=== PATIENT | female | born 1995 | race Caucasian/White ===

== ENCOUNTER 2017-10-26 12:03 | Emergency (ER) | END 2017-10-26 15:47 | disposition home or self-care (01) ==

== ENCOUNTER 2018-01-17 17:53 | Emergency (ER) | END 2018-01-17 22:28 | disposition home or self-care (01) ==

== ENCOUNTER 2018-06-27 16:33 | Emergency (ER) | END 2018-06-27 20:16 | disposition home or self-care (01) ==

== ENCOUNTER 2018-07-15 10:53 | Emergency (ER) | END 2018-07-15 13:27 | disposition left against medical advice (07) ==

== ENCOUNTER 2018-10-02 15:14 | Emergency (ER) | END 2018-10-02 16:15 | disposition home or self-care (01) ==

== ENCOUNTER 2019-01-15 17:29 | Emergency (ER) | payer OTHER ==
[~2019-01-15] VITALS: Ht 160 cm; Wt 103.5 kg
[~2019-01-15 17:29] MED LIST: ACET325T33 PO; ACET325T45 PO; AMOX1TAB10 PO; CEPH-443 PO; DIC20 PO; DICY20TA59 PO; HYDR-3498 PO; HYDR-3980 PO; HYDR-4011 PO; IBUP-1542 PO; LORA-441 PO; NAPR-985 PO; NITR-58 PO; OMEP40CA6 PO; ONDA4TAB14 PO; RANI150T35 PO
[2019-01-15 18:13] VITALS: Ht 160 cm; Wt 103.5 kg
[2019-01-15] MEDS ORDERED: ONDANSETRON (ODT) 4 MG TAB ODT STA (20:49)
[2019-01-15] MEDS ORDERED: IBUPROFEN 800 MG TAB PO ONE (21:00)
[2019-01-16] MEDS ORDERED: NITR-58 PO (00:17)
[2019-01-16] MEDS ORDERED: ACET-141 PO (00:17)
--- NOTE | 2019-01-16 00:20 | ERD ---
ER Documentation Chief Complaint Chief Complaint AP RADIATING TO BACK WITH VOMITING X 1 DAY, DYSURIA HPI 23-year-old female presents for pain in the lower left quadrant with left flank pain and vomiting times 1 day. She does have dysuria. She also vomited a few times. She states that the pain is 6 out of 10, pulsatile in nature. Denies diarrhea. Denies significant past medical history. ROS All systems reviewed and are negative except as per history of present illness. Medications Home Meds Active Scripts Nitrofurantoin Monohyd Macrocr* (Macrobid*) 100 Mg Capsr, 100 MG PO BID for uti for 5 Days, #10 CAP Prov:SUSAN SUN DO 01/16/19 Acetaminophen* (Acetaminophen*) 500 MG Extra Strength Tablet, 500 MG PO Q4H PRN for PAIN AND OR ELEVATED TEMP for 30 Days, TAB Prov:SUSAN SUN DO 01/16/19 Amoxicillin/Potassium Clav (Amox-Clav 875-125 mg Tablet) 875-125 mg Tab, 1 TAB PO BID for 10 Days, #20 TAB Prov:JEANNIE ESPINOZA 10/02/18 Acetaminophen* (Tylenol*) 325 Mg Tablet, 2 TAB PO Q6 PRN for PAIN AND OR ELEVATED TEMP, #20 TAB Prov:ANA LAURA BENJAMIN MD 06/27/18 Ranitidine Hcl* (Zantac*) 150 Mg Tablet, 150 MG PO BID PRN for EPIGASTRIC PAIN, #30 TAB Prov:ANA LAURA BENJAMIN MD 06/27/18 Omeprazole* (Omeprazole*) 40 Mg Capsule.dr, 40 MG PO DAILY, #14 CAP Prov:ORALIA SANTOS DO 01/17/18 Dicyclomine HCl (Dicyclomine HCl) 20 Mg Tablet, 20 MG PO QID, #20 Prov:ORALIA SANTOS DO 01/17/18 Hydrocodone/Acetaminophen ([place] 10-325 Tablet) 1 Each Tablet, 1 TAB PO Q6H PRN for PAIN, #20 TAB Prov:ORALIA SANTOS DO 01/17/18 Cephalexin* (Keflex*) 500 Mg Capsule, 500 MG PO QID for 5 Days, CAP Prov:SUSAN RANDALL PA-C 10/26/17 Ondansetron (Ondansetron Odt) 4 Mg Tab.rapdis, 4 MG PO Q8 PRN for NAUSEA AND/OR VOMITING, #30 TAB Prov:KELLY GOEL NP 06/07/16 Dicyclomine Hcl* (Bentyl*) 20 Mg Tablet, 20 MG PO QID, #20 TAB Prov:KELLY GOEL NP 06/07/16 Hydrocodone/Acetaminophen ([place] 5-325 Tablet) 1 Each Tablet, 1 TAB PO Q6H PRN for PAIN, #20 TAB Prov:KELLY GOEL NP 06/07/16 Lorazepam* (Ativan*) 0.5 Mg Tablet, 0.5 MG PO Q8, #10 TAB Prov:MOJGAN JAFFE MD 12/16/15 Ibuprofen* (Motrin*) 600 Mg Tab, 600 MG PO BID, #30 TAB 0 Refills Prov:BOLIVAR HUGHES PA-C 10/10/15 Nitrofurantoin Monohyd Macrocr* (Macrobid*) 100 Mg Capsr, 100 MG PO BID, #14 CAP 0 Refills Prov:BOLIVAR HUGHES PA-C 10/10/15 Naproxen* (Naprosyn*) 500 Mg Tablet, 500 MG PO BID PRN for PAIN AND/OR INFLAMMATION, #30 TAB Prov:GARRETT YING PA-C 09/21/15 Hydrocodone Bit-Acetaminophen* ([place]*) 5-325 Mg Tab, 1 TAB PO Q6 PRN for PAIN, #10 TAB Prov:GARRETT YING PA-C 09/21/15 Reported Medications Acetaminophen* (Acetaminophen*) 325 Mg Tablet, 650 MG PO Q4 TOOK IT THIS MORNING AT 0800 06/24/13 Allergies Allergies: Coded Allergies: No Known Allergy (Unverified , 10/02/18) PMhx/Soc History of Surgery: No Anesthesia Reaction: No Hx Neurological Disorder: No Hx Respiratory Disorders: No Hx Cardiac Disorders: No Hx Psychiatric Problems: No Hx Miscellaneous Medical Probl: Yes (OTITIS MEDIA/RIGHT EAR) Hx Alcohol Use: No Hx Substance Use: No Hx Tobacco Use: No Smoking Status: Never smoker Physical Exam Vitals Vital Signs Date Temp Pulse Resp B/P (MAP) Pulse Ox O2 O2 Flow FiO2 Time Delivery Rate 01/16/19 98.5 85 16 124/76 98 Room Air 00:39 (92) 01/15/19 99.4 81 16 131/60 99 18:13 (83) Physical Exam Const: No acute distress Resp: Clear to auscultation bilaterally Cardio: Regular rate and rhythm, no murmurs Abd: Soft, non distended. Normal bowel sounds, mild left lower quadrant/left pelvic area tenderness palpation, no McBurney's point tenderness, no Gould sign, no rebound or guarding noted Skin: No petechiae or rashes Back: No midline or flank tenderness Ext: No cyanosis, or edema Neur: Awake and alert Psych: Normal Mood and Affect Result Diagram: 01/15/19205701/15/192057 Results 24 hrs Laboratory Tests Test 01/15/19 20:58 01/15/19 21:14 01/15/19 22:34 White Blood Count 8.8 10^3/ul Red Blood Count 4.49 10^6/ul Hemoglobin 12.5 g/dl Hematocrit 39.0 % Mean Corpuscular Volume 86.9 fl Mean Corpuscular Hemoglobin 27.8 pg Mean Corpuscular 32.1 g/dl Hemoglobin Concent Red Cell Distribution Width 13.6 % Platelet Count 350 10^3/UL Mean Platelet Volume 8.4 fl Immature Granulocytes % 0.300 % Neutrophils % 62.4 % Lymphocytes % 29.3 % Monocytes % 6.6 % Eosinophils % 0.9 % Basophils % 0.5 % Nucleated Red Blood Cells % 0.0 /100WBC Immature Granulocytes # 0.030 10^3/ul Neutrophils # 5.5 10^3/ul Lymphocytes # 2.6 10^3/ul Monocytes # 0.6 10^3/ul Eosinophils # 0.1 10^3/ul Basophils # 0.0 10^3/ul Nucleated Red Blood Cells # 0.0 10^3/ul Urine Color YELLOW Urine Clarity CLOUDY Urine pH 6.0 Urine Specific [place] 1.015 Urine Ketones NEGATIVE mg/dL Urine Nitrite NEGATIVE mg/dL Urine Bilirubin NEGATIVE mg/dL Urine Urobilinogen NEGATIVE mg/dL Urine Leukocyte Esterase 2+ Mary/ul Urine Microscopic RBC 5 /HPF Urine Microscopic WBC 30 /HPF Urine Squamous Epithelial Cells MANY /HPF Urine Bacteria FEW /HPF Urine Mucus FEW /HPF Urine Hemoglobin NEGATIVE mg/dL Urine Glucose NEGATIVE mg/dL Urine Total Protein NEGATIVE mg/dl Sodium Level 138 mmol/L Potassium Level 4.4 mmol/L Chloride Level 101 mmol/L Carbon Dioxide Level 26 mmol/L Anion Gap 11 Blood Urea Nitrogen 9 mg/dl Creatinine 0.43 mg/dl Est Glomerular Filtrat > 60 mL/min Rate mL/min Glucose Level 84 mg/dl Calcium Level 9.2 mg/dl Total Bilirubin 0.5 mg/dl Direct Bilirubin 0.00 mg/dl Indirect Bilirubin 0.5 mg/dl Aspartate Amino 22 IU/L Transf (AST/SGOT) Alanine 18 IU/L Aminotransferase (ALT/SGPT) Alkaline Phosphatase 86 IU/L Total Protein 8.0 g/dl Albumin 4.3 g/dl Globulin 3.70 g/dl Albumin/Globulin Ratio 1.16 Lipase 76 U/L POC Beta HCG, Qualitative POSITIVE Beta HCG, Quantitative 51345.0 mIU/ml Current Medications Medications Dose Sig/Marcell Start Time Status Last (Trade) Ordered Route PRN Stop Time Admin Dose Reason Admin Ibuprofen 800 mg ONCE ONCE 01/15/19 DC (Motrin) PO 21:00 01/15/19 21:01 Ondansetron 4 mg ONCE STAT 01/15/19 DC 01/15/19 HCl (Zofran ODT 20:49 01/15/19 21:37 Odt) 20:52 Procedures/MDM Medical Decision Making: Differential diagnosis includes but not limited to acute gastritis, acute gastroenteritis, appendicitis, cholecystitis, pancreatitis. Patient appeared well on physical exam. Nontoxic appearing. There is some tenderness to palpation over the left lower quadrant, left pelvic area ED course: Patient was given . Symptoms improved with treatment. Labs: CBC showed no severe anemia, no elevated WBC to suggest infection CMP showed no electrolyte abnormalities, there was normal kidney and liver function Lipase was normal Urine was negative UA was negative for infection Imaging: Patient likely has Prescription(s): Patient given prescription for supportive medications . Patient advised to follow up with PCP in 1-2 days. Patient advised to return to ED for new or worsening symptoms. Patient stable on discharge from the ED. Disclaimer: Inadvertent spelling and grammatical errors are likely due to EHR/dictation software use and do not reflect on the overall quality of patient care. Also, please note that the electronic time recorded on this note does not necessarily reflect the actual time of the patient encounter. Departure Diagnosis: Primary Impression: Pelvic pain affecting in first trimester, antepartum Condition: Fair Patient Instructions: : Your First Trimester Changes Referrals: [facility] [employer] [employer] ENGINE[facility] [place] [id number] [facility] [address] [place] [address] OFFICE FAX , [facility] [address] [place], [place] [id number], [place] [address] [place] [address] [address] ANDERS, [facility] [address] [facility], [facility] [address] [address], [facility] [address] [place] [address] [facility] [address] [place] [address] [address] [facility] [address] [address]DE[address], [place] [address] [facility], [facility] [address] [address] [place]OP, [place] [address] [facility]. [address], [facility] [address] [address] FERNANDEZ, [facility] [address] [place], [place] [id number] Additional Instructions: Call your primary care doctor TOMORROW for an appointment during the next 1-2 da ys.See the doctor sooner or return here if your condition worsens before your appointment time. Return in ED in 48hr for repeat HCG level make appointment with Pool Table Operator SUSAN SUN DO Jan 16, 2019 00:20
[2019-01-16 00:39] VITALS: BP 124/76; PULSE 85; RESP 16
== END 2019-01-16 00:39 | disposition home or self-care (01) ==
LOC: FTE 17:29
DX: R10.2 Pelvic and perineal pain (principal); Z33.1 Pregnant state, incidental
CPT/HCPCS: 36415; 76775; 76801; 76817; 80053; 81001; 81025; 83690; 84702; 85025; 87086; Z7502; Z7610

== ENCOUNTER 2019-02-25 18:39 | Emergency (ER) | payer OTHER ==
[~2019-02-25] VITALS: Ht 157.5 cm; Wt 103.6 kg
[~2019-02-25 18:39] MED LIST changes: +ACET-141 PO
[2019-02-25 18:55] VITALS: BP 127/84; PULSE 94; RESP 18; Ht 157.5 cm; Wt 103.6 kg
[2019-02-25] MEDS ORDERED: ONDA4TAB14 PO (20:45)
[2019-02-25] MEDS ORDERED: FAMO-96 PO (20:45)
--- NOTE | 2019-02-25 20:58 | ERD ---
ER Documentation Chief Complaint Chief Complaint C/O ABDOMINAL CRAMPING AND VOMITING TODAY, 12WEEKS PREG HPI 23-year-old G2, P1 female 12 weeks who presents with complaint of abdom inal cramping and single episode of vomiting today. Patient states she had a meal and had a single episode of vomiting following that meal earlier today. Also with burning type reflux pain to the upper abdomen and chest. She otherwise denies fever, chills, radiation of abdominal discomfort and pain, vaginal bleeding or discharge, urinary symptoms aside from frequency. 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 At time of examination she is nontoxic-appearing with complete reassuring examination. She otherwise reporting eating regularly and drinking appropriate amount of fluids. ROS All systems reviewed and are negative except as per history of present illness. Medications Home Meds Active Scripts Famotidine* (Pepcid*) 20 Mg Tablet, 20 MG PO BID for 4 Days, TAB Prov:SHELDON ADAMS PA-C 02/25/19 Ondansetron (Ondansetron Odt) 4 Mg Tab.rapdis, 4 MG PO Q6H PRN for NAUSEA AND/OR VOMITING, #10 TAB Prov:SHELDON ADAMS PA-C 02/25/19 Nitrofurantoin Monohyd Macrocr* (Macrobid*) 100 Mg Capsr, 100 MG PO BID for uti for 5 Days, #10 CAP Prov:SUSAN SUN DO 01/16/19 Acetaminophen* (Acetaminophen*) 500 MG Extra Strength Tablet, 500 MG PO Q4H PRN for PAIN AND OR ELEVATED TEMP for 30 Days, TAB Prov:SUSAN SUN DO 01/16/19 Amoxicillin/Potassium Clav (Amox-Clav 875-125 mg Tablet) 875-125 mg Tab, 1 TAB PO BID for 10 Days, #20 TAB Prov:JEANNIE ESPINOZA 10/02/18 Acetaminophen* (Tylenol*) 325 Mg Tablet, 2 TAB PO Q6 PRN for PAIN AND OR ELEVATED TEMP, #20 TAB Prov:ANA LAURA BENJAMIN MD 06/27/18 Ranitidine Hcl* (Zantac*) 150 Mg Tablet, 150 MG PO BID PRN for EPIGASTRIC PAIN, #30 TAB Prov:ANA LAURA BENJAMIN MD 06/27/18 Omeprazole* (Omeprazole*) 40 Mg Capsule.dr, 40 MG PO DAILY, #14 CAP Prov:ERIKA SANTOSSTNICOLE Chowdhury DO 01/17/18 Dicyclomine HCl (Dicyclomine HCl) 20 Mg Tablet, 20 MG PO QID, #20 Prov:JOSHLIBBYBONYERIKASTOLOS A. DO 01/17/18 Hydrocodone/Acetaminophen ([place] 10-325 Tablet) 1 Each Tablet, 1 TAB PO Q6H PRN for PAIN, #20 TAB Prov:ORALIA SANTOS DO 01/17/18 Cephalexin* (Keflex*) 500 Mg Capsule, 500 MG PO QID for 5 Days, CAP Prov:SUSAN RANDALL PA-C 10/26/17 Ondansetron (Ondansetron Odt) 4 Mg Tab.rapdis, 4 MG PO Q8 PRN for NAUSEA AND/OR VOMITING, #30 TAB Prov:KELLY GOEL NP 06/07/16 Dicyclomine Hcl* (Bentyl*) 20 Mg Tablet, 20 MG PO QID, #20 TAB Prov:KELLY GOEL NP 06/07/16 Hydrocodone/Acetaminophen ([place] 5-325 Tablet) 1 Each Tablet, 1 TAB PO Q6H PRN for PAIN, #20 TAB Prov:KELLY GOEL NP 06/07/16 Lorazepam* (Ativan*) 0.5 Mg Tablet, 0.5 MG PO Q8, #10 TAB Prov:MOJGAN JAFFE MD 12/16/15 Ibuprofen* (Motrin*) 600 Mg Tab, 600 MG PO BID, #30 TAB 0 Refills Prov:BOLIVAR HUGHES PA-C 10/10/15 Nitrofurantoin Monohyd Macrocr* (Macrobid*) 100 Mg Capsr, 100 MG PO BID, #14 CAP 0 Refills Prov:BOLIVAR HUGHES PA-C 10/10/15 Naproxen* (Naprosyn*) 500 Mg Tablet, 500 MG PO BID PRN for PAIN AND/OR INFLAMMATION, #30 TAB Prov:GARRETT YING PA-C 09/21/15 Hydrocodone Bit-Acetaminophen* ([place]*) 5-325 Mg Tab, 1 TAB PO Q6 PRN for PAIN, #10 TAB Prov:GARRETT YING PA-C 09/21/15 Reported Medications Acetaminophen* (Acetaminophen*) 325 Mg Tablet, 650 MG PO Q4 TOOK IT THIS MORNING AT 0800 06/24/13 Allergies Allergies: Coded Allergies: No Known Allergy (Unverified , 10/02/18) PMhx/Soc Medical and Surgical Hx: pt denies Surgical Hx History of Surgery: No Anesthesia Reaction: No Hx Neurological Disorder: No Hx Respiratory Disorders: No Hx Cardiac Disorders: No Hx Psychiatric Problems: No Hx Miscellaneous Medical Probl: Yes (OTITIS MEDIA/RIGHT EAR) Hx Alcohol Use: No Hx Substance Use: No Hx Tobacco Use: No Smoking Status: Never smoker Physical Exam Vitals Vital Signs Date Temp Pulse Resp B/P (MAP) Pulse Ox O2 O2 Flow FiO2 Time Delivery Rate 02/25/19 98.0 94 18 127/84 99 18:55 (98) Physical Exam I have reviewed the triage vital signs. Const: Well nourished, well developed, appears stated age, not appearing dehydrated Eyes: PERRL, no conjunctival injection HENT: NCAT, Neck supple without meningismus CV: RRR, Warm, well-perfused extremities RESP: CTAB, Unlabored respiratory effort GI: soft, non-tender, non-distended, no masses MSK: No gross deformities appreciated Skin: Warm, dry. No rashes, good capillary refill Neuro: grossly non focal Psych: Appropriate mood and affect. Procedures/MDM 23-year-old G2, P1 12-week patient who comes in with complaint of abdominal cramping and single episode of vomiting. I believe all her symptoms are related to early . She exhibits no red flag symptoms or examination findings that would make me concern for dehydration. Do not believe she warrants further work-up such as labs or intravenous fluids given she does not appear dehydrated and is eating and drinking without issue. She will be discharged with strict return precautions. Give her a trial of Zofran as well as Pepcid. Considered ectopic , spectrum of miscarriage/ (threatened, inevitable, incomplete, complete, septic) as well as causes of female-specific abdominal pain unrelated to (e.g., pelvic inflammatory disease with or without tubo-ovarian abscess, Liuk-Qvvw-Xskdro, etc.). Also considered causes of abdominal pain that are not gender-specific (e.g., appendicitis, volvulus, small bowel obstruction, mesenteric adenitis, acute cholecystitis/choledocholithiasis and other biliary pathology, etc.). Patient well-appearing with normal vital signs. DISPOSITION PLAN: We discussed follow up with the patient's primary care doctor within 24 to 48 hours. Patient counseled regarding my diagnostic impression and care plan. Prior to discharge all questions answered. Pt agrees with treatment plan and understands strict return precautions. Precautionary instructions provided including instructions to return to the ER if not improving or for any worsening or changing symptoms or concerns. Disclaimer: Inadvertent spelling and grammatical errors are likely due to EHR/dictation software use and do not reflect on the overall quality of patient care. Also, please note that the electronic time recorded on this note does not necessarily reflect the actual time of the patient encounter. Departure Diagnosis: Primary Impression: Vomiting affecting Condition: Stable Patient Instructions: : Your First Trimester Changes, : More Common Questions, : Body Changes, , New Dx, , Established, Normal Symptoms Additional Instructions: Call your primary care doctor TOMORROW for an appointment during the next 2-3 days.See the doctor sooner or return here if your condition worsens before your appointment time. SHELDON ADAMS PA-C February 25, 2019 20:58
== END 2019-02-25 21:00 | disposition home or self-care (01) ==
LOC: FTE 18:39
DX: O21.9 Vomiting of pregnancy, unspecified (principal); Z3A.12 12 weeks gestation of pregnancy
CPT/HCPCS: 99283

== ENCOUNTER 2019-04-11 14:05 | Emergency (ER) | payer OTHER ==
[~2019-04-11] VITALS: Ht 160 cm; Wt 103.4 kg
[~2019-04-11 14:05] MED LIST changes: +FAMO-96 PO
[2019-04-11 14:07] VITALS: BP 130/88; PULSE 114; RESP 16; Ht 160 cm; Wt 103.4 kg
[2019-04-11] MEDS ORDERED: ACETAMINOPHEN 500 MG TAB PO STA (14:42)
[2019-04-11] MEDS ORDERED: SOD CHLORIDE 0.9% 1,000 ML IV STA (14:42)
--- NOTE | 2019-04-11 19:17 | ERD ---
ER Documentation Chief Complaint Chief Complaint pt reports low back pain radiating to front + preg HPI History of Present Illness: 23-year-old female who denies a past medical history coming in today due to left flank and right upper quadrant abdominal pain that started yesterday. Patient reports that pain is cramping and is intermittent. Patient reports last menstrual period was 11/15/2018 reports that she is approximately 18 weeks . Denies nausea, vomiting, diarrhea. Denies dysuria, vaginal bleeding, pelvic pain. At home pharmacological/nonpharmacological treatment for symptoms: Denies Denies social concerns; Denies recent foreign travel ROS All systems reviewed and are negative except as per history of present illness. Medications Home Meds Active Scripts Famotidine* (Pepcid*) 20 Mg Tablet, 20 MG PO BID for 4 Days, TAB Prov:SHELDON ADAMS PA-C 02/25/19 Ondansetron (Ondansetron Odt) 4 Mg Tab.rapdis, 4 MG PO Q6H PRN for NAUSEA AND/OR VOMITING, #10 TAB Prov:SHELDON ADAMS PA-C 02/25/19 Nitrofurantoin Monohyd Macrocr* (Macrobid*) 100 Mg Capsr, 100 MG PO BID for uti for 5 Days, #10 CAP Prov:SUSAN SUN DO 01/16/19 Acetaminophen* (Acetaminophen*) 500 MG Extra Strength Tablet, 500 MG PO Q4H PRN for PAIN AND OR ELEVATED TEMP for 30 Days, TAB Prov:SUSAN SUN DO 01/16/19 Amoxicillin/Potassium Clav (Amox-Clav 875-125 mg Tablet) 875-125 mg Tab, 1 TAB PO BID for 10 Days, #20 TAB Prov:JEANNIE ESPINOZA 10/02/18 Acetaminophen* (Tylenol*) 325 Mg Tablet, 2 TAB PO Q6 PRN for PAIN AND OR ELEVATED TEMP, #20 TAB Prov:ANA LAURA BENJAMIN MD 06/27/18 Ranitidine Hcl* (Zantac*) 150 Mg Tablet, 150 MG PO BID PRN for EPIGASTRIC PAIN, #30 TAB Prov:ANA LAURA BENJAMIN MD 06/27/18 Omeprazole* (Omeprazole*) 40 Mg Capsule.dr, 40 MG PO DAILY, #14 CAP Prov:ORALIA SANTOS DO 01/17/18 Dicyclomine HCl (Dicyclomine HCl) 20 Mg Tablet, 20 MG PO QID, #20 Prov:ERIKA SANTOSSTOLOS A. DO 01/17/18 Hydrocodone/Acetaminophen ([place] 10-325 Tablet) 1 Each Tablet, 1 TAB PO Q6H PRN for PAIN, #20 TAB Prov:JOSHKKOS,APOSTOLOS A. DO 01/17/18 Cephalexin* (Keflex*) 500 Mg Capsule, 500 MG PO QID for 5 Days, CAP Prov:SUSAN RANDALL PA-C 10/26/17 Ondansetron (Ondansetron Odt) 4 Mg Tab.rapdis, 4 MG PO Q8 PRN for NAUSEA AND/OR VOMITING, #30 TAB Prov:KELLY GOEL NP 06/07/16 Dicyclomine Hcl* (Bentyl*) 20 Mg Tablet, 20 MG PO QID, #20 TAB Prov:KELLY GOEL NP 06/07/16 Hydrocodone/Acetaminophen ([place] 5-325 Tablet) 1 Each Tablet, 1 TAB PO Q6H PRN for PAIN, #20 TAB Prov:KELLY GOEL NP 06/07/16 Lorazepam* (Ativan*) 0.5 Mg Tablet, 0.5 MG PO Q8, #10 TAB Prov:MOJGAN JAFFE MD 12/16/15 Ibuprofen* (Motrin*) 600 Mg Tab, 600 MG PO BID, #30 TAB 0 Refills Prov:BOLIVAR HUGHES PA-C 10/10/15 Nitrofurantoin Monohyd Macrocr* (Macrobid*) 100 Mg Capsr, 100 MG PO BID, #14 CAP 0 Refills Prov:BOLIVAR HUGHES PA-C 10/10/15 Naproxen* (Naprosyn*) 500 Mg Tablet, 500 MG PO BID PRN for PAIN AND/OR INFLAMMATION, #30 TAB Prov:GARRETT YING PA-C 09/21/15 Hydrocodone Bit-Acetaminophen* ([place]*) 5-325 Mg Tab, 1 TAB PO Q6 PRN for PAIN, #10 TAB Prov:GARRETT YING PA-C 09/21/15 Reported Medications Acetaminophen* (Acetaminophen*) 325 Mg Tablet, 650 MG PO Q4 TOOK IT THIS MORNING AT 0800 06/24/13 Allergies Allergies: Coded Allergies: No Known Allergy (Unverified , 10/02/18) PMhx/Soc Medical and Surgical Hx: pt denies Medical Hx, pt denies Surgical Hx History of Surgery: No Anesthesia Reaction: No Hx Neurological Disorder: No Hx Respiratory Disorders: No Hx Cardiac Disorders: No Hx Psychiatric Problems: No Hx Miscellaneous Medical Probl: No Hx Alcohol Use: No Hx Substance Use: No Hx Tobacco Use: No Smoking Status: Never smoker Physical Exam Vitals Vital Signs Date Temp Pulse Resp B/P (MAP) Pulse Ox O2 O2 Flow FiO2 Time Delivery Rate 04/11/19 37.0 15:29 04/11/19 98.6 114 16 130/88 100 14:07 (102) Physical Exam Const: No acute distress, afebrile Head: Atraumatic Eyes: Normal Conjunctiva ENT: Normal External Ears, Nose and Mouth. Neck: Full range of motion. No meningismus. Resp: Clear to auscultation bilaterally Cardio: Regular rate and rhythm, no murmurs Abd: Soft, tenderness to palpation to right upper quadrant, non distended. Active bowel sounds. No guarding, no masses, no rigidity. Palpable fundus. Skin: No petechiae or rashes Back: No midline or flank tenderness Ext: No cyanosis, or edema Neur: Awake and alert x3, speaking in clear sentences, no focal deficits or facial asymmetry Psych: Normal Mood and Affect Result Diagram: 04/11/19 1455 04/11/19 1455 Results 24 hrs Laboratory Tests Test 04/11/19 14:55 White Blood Count 9.3 10^3/ul Red Blood Count 4.09 10^6/ul Hemoglobin 11.4 g/dl Hematocrit 34.3 % Mean Corpuscular Volume 83.9 fl Mean Corpuscular Hemoglobin 27.9 pg Mean Corpuscular Hemoglobin Concent 33.2 g/dl Red Cell Distribution Width 13.7 % Platelet Count 297 10^3/UL Mean Platelet Volume 8.8 fl Immature Granulocytes % 0.500 % Neutrophils % 70.7 % Lymphocytes % 22.0 % Monocytes % 5.7 % Eosinophils % 0.9 % Basophils % 0.2 % Nucleated Red Blood Cells % 0.0 /100WBC Immature Granulocytes # 0.050 10^3/ul Neutrophils # 6.6 10^3/ul Lymphocytes # 2.1 10^3/ul Monocytes # 0.5 10^3/ul Eosinophils # 0.1 10^3/ul Basophils # 0.0 10^3/ul Nucleated Red Blood Cells # 0.0 10^3/ul Urine Color BREANA Urine Clarity CLEAR Urine pH 5.0 Urine Specific [place] 1.019 Urine Ketones NEGATIVE mg/dL Urine Nitrite NEGATIVE mg/dL Urine Bilirubin NEGATIVE mg/dL Urine Urobilinogen NEGATIVE mg/dL Urine Leukocyte Esterase 1+ Mary/ul Urine Microscopic RBC 10 /HPF Urine Microscopic WBC 8 /HPF Urine Squamous Epithelial Cells MANY /HPF Urine Mucus MODERATE /HPF Urine Hemoglobin 1+ mg/dL Urine Glucose NEGATIVE mg/dL Urine Total Protein NEGATIVE mg/dl Sodium Level 140 mmol/L Potassium Level 3.8 mmol/L Chloride Level 108 mmol/L Carbon Dioxide Level 23 mmol/L Anion Gap 9 Blood Urea Nitrogen 5 mg/dl Creatinine 0.44 mg/dl Est Glomerular Filtrat Rate mL/min > 60 mL/min Glucose Level 101 mg/dl Calcium Level 9.0 mg/dl Total Bilirubin 0.5 mg/dl Direct Bilirubin 0.00 mg/dl Indirect Bilirubin 0.5 mg/dl Aspartate Amino Transf (AST/SGOT) 19 IU/L Alanine Aminotransferase (ALT/SGPT) 14 IU/L Alkaline Phosphatase 84 IU/L Total Protein 7.6 g/dl Albumin 3.8 g/dl Globulin 3.80 g/dl Albumin/Globulin Ratio 1.00 Lipase 57 U/L Beta HCG, Quantitative 64280.0 mIU/ml Current Medications Medications Dose Sig/Marcell Start Time Status Last (Trade) Ordered Route PRN Stop Time Admin Dose Reason Admin Sodium 1,000 ml @ Q1H STAT 04/11/19 DC 04/11/19 Chloride 1,000 mls/hr IV 14:42 15:29 04/11/19 15:41 1,000 mg ONCE STAT 04/11/19 DC 04/11/19 Acetaminophen PO 14:42 15:29 (Tylenol 04/11/19 14:45 Tab) Procedures/MDM ED COURSE: ED course includes a thorough examination and history. The patient was stable throughout ED course. I kept the patient and/or family informed of laboratory and diagnostic imaging results throughout the ED course. LABS: CBC: no e/o of systemic infection or severe anemia CMP: no e/o severe acidosis, alkalosis, renal failure, diabetic ketoacidosis, liver disease Beta quantitative: 22,103 Lipase within normal limits Urinalysis positive for 1+ leukocyte Estrace, 10 RBCs, 8 WBCs, 1+ hemoglobin MEDICATIONS GIVEN IN ER: IV NS due to mild tachycardia, acetaminophen Patient tolerated medication well with no adverse reactions. Patient reported improvement in pain. DIAGNOSTIC IMAGING: Read by radiologist. OB ultrasound results show: IMPRESSION: 1. Single live intrauterine gestation of 18 weeks 6 days by ultrasound criteria. RPTAT: DD .Tommie Drummond MD, MD Date Time Electronically viewed and signed by .Tommie Drummond MD, on 04/11/2019 16:16 Gallbladder ultrasound results show: IMPRESSION: Hepatic steatosis. Underlying hepatocellular disease cannot be excluded. Contracted gallbladder. No cholelithiasis. Obscured pancreas due to overlying bowel gas. No biliary dilatation. Physician Carter Date Time Electronically viewed and signed by Physician Carter on 04/11/2019 15:53 PROCEDURES: None. MEDICAL DECISION MAKING: Low suspicion for life-threatening medical emergency. Otherwise healthy patient presenting with constellation of symptoms likely representing uncomplicated abdominal pain during , urinary tract infection, possible kidney stone as characterized by history, physical exam findings, imaging findings, lab findings. Patient reassessment @ 1630: Results discussed. Patient hemodynamically stable. No respiratory distress, otherwise relatively well appearing and nontoxic. Disposition given. Patient educated on diagnoses, prescriptions, follow-up care, return precautions. Strict return precautions given for worsening condition; questions answered discharge. Patient verbalizes understanding of discharge instructions. PRESCRIPTIONS FOR HOME: Cephalexin, acetaminophen Called and spoke to patient by phone at [phone] on phone [phone]. Updated patient on urinalysis results and that a prescription for cephalexin will need be called in. Patient updated on medication instructions. Patient verbalizes understanding of instructions as well as verbalizes importance of getting prescription to prevent progression of urinary tract infection as well as complications including labor. Prescription called into [facility] [place] [id number] [place] [address] per patient's request. Spoke to pharmacist, Dr. Harris @ 2026. DISPOSITION: DISCHARGE At this time, patient is stable for discharge and outpatient management. I have instructed the patient to follow-up with his/her primary care physician in 1-2 days. I have discussed with the patient the possibility of needing to see a specialist for further workup and imaging studies if symptoms persist. I have instructed the patient to promptly return to the ER for any new or worsening symptoms including increased pain, fever, nausea, vomiting, weakness or LOC. The patient and/or family expressed understanding of and agreement with this plan. All questions were answered. Home care instructions were provided. DISCLAIMER: Inadvertent spelling and grammatical errors are likely due to EHR/dictation software use and do not reflect on the overall quality of patient care. Also, please note that the electronic time recorded on this note does not necessarily reflect the actual time of the patient encounter. Departure Diagnosis: Primary Impression: Abdominal pain Abdominal location: right upper quadrant Qualified Codes: R10.11 - Right upper quadrant pain Additional Impression: UTI (urinary tract infection) Urinary tract infection type: acute cystitis Hematuria presence: with hematuria Qualified Codes: N30.01 - Acute cystitis with hematuria Condition: Stable Patient Instructions: Abdominal Pain Referrals: [facility] (PCP) [facility] YOU HAVE RECEIVED A MEDICAL SCREENING EXAM AND THE RESULTS INDICATE THAT YOU DO NOT HAVE A CONDITION THAT REQUIRES URGENT TREATMENT IN THE EMERGENCY DEPARTMENT. FURTHER EVALUATION AND TREATMENT OF YOUR CONDITION CAN WAIT UNTIL YOU ARE SEEN IN YOUR DOCTORS OFFICE WITHIN THE NEXT 1-2 DAYS. IT IS YOUR RESPONSIBILITY TO MAKE AN APPOINTMENT FOR FOLOW-UP CARE. IF YOU HAVE A PRIMARY DOCTOR --you should call your primary doctor and schedule an appointment IF YOU DO NOT HAVE A PRIMARY DOCTOR YOU CAN CALL OUR PHYSICIAN REFERRAL HOTLINE AT IF YOU CAN NOT AFFORD TO SEE A PHYSICIAN YOU CAN CHOSE FROM THE FOLLOWING [facility] [address] [facility]. [facility] [address] [facility] [address] [facility] [address] [facility] [address] [facility] [address] [facility]. [facility] YOU HAVE RECEIVED A MEDICAL SCREENING EXAM AND THE RESULTS INDICATE THAT YOU DO NOT HAVE A CONDITION THAT REQUIRES URGENT TREATMENT IN THE EMERGENCY DEPARTMENT. FURTHER EVALUATION AND TREATMENT OF YOUR CONDITION CAN WAIT UNTIL YOU ARE SEEN IN YOUR DOCTORS OFFICE WITHIN THE NEXT 1-2 DAYS. IT IS YOUR RESPONSIBILITY TO MAKE AN APPOINTMENT FOR FOLOW-UP CARE. IF YOU HAVE A PRIMARY DOCTOR --you should call your primary doctor and schedule and appointment IF YOU DO NOT HAVE A PRIMARY DOCTOR YOU CAN CALL OUR PHYSICIAN REFERRAL HOTLINE AT . IF YOU CAN NOT AFFORD TO SEE A PHYSICIAN YOU CAN CHOSE FROM THE FOLLOWING [facility] INSTITUTIONS: [facility] [address] [place] [address] [facility] [address] [place] [address] [facility] [address] [place] [address] Additional Instructions: Thank you very much for allowing us to participate in your care. Your health and safety is our top priority at [facility]. It is important to read all discharge instructions and education provided in your discharge packet. Call your primary care doctor TOMORROW for an appointment during the next 2-4 days and bring all the information and medications prescribed. Have prescriptions filled and follow precisely the directions on the label. --Acetaminophen as a medication for pain and/or fever. Take this medication as needed for mild to moderate pain. This medication will not cause drowsiness. This medication is safe during . If the symptoms get worse and your provider is unavailable, return to the Emergency Department immediately. SHERYL SUN NP Apr 11, 2019 19:17
== END 2019-04-11 16:39 | disposition home or self-care (01) ==
LOC: FTE 14:05
DX: O26.892 Other specified pregnancy related conditions, second trimester (principal); O23.12 Infections of bladder in pregnancy, second trimester; R10.11 Right upper quadrant pain
CPT/HCPCS: 36415; 76705; 76805; 80053; 81001; 83690; 84702; 85025; 86900; 86901; 96360; J7030; Z7502; Z7610

== ENCOUNTER 2019-04-20 22:33 | Outpatient (CLI) | payer OTHER ==
[~2019-04-20] VITALS: Ht 158.8 cm; Wt 103.0 kg
[2019-04-20 22:51] VITALS: BP 127/83; PULSE 132; RESP 20
[2019-04-20] MEDS ORDERED: CALC600T24 PO (23:16)
[2019-04-20] MEDS ORDERED: FERR134T PO (23:16)
[2019-04-20] MEDS ORDERED: PREN-19 PO (23:16)
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
--- NOTE | 2019-04-23 16:36 | RADRPT ---
Vent Rate: 124 bpm RR Interval: 484 msec ND Interval: 141 msec QRS Duration: 84 msec QT Interval: 311 msec QTC Interval: 447 msec P-R-T Connell: 47 - 40 - 1 degrees Sinus tachycardia...rate> 99 Electronically Signed By: Ezekiel Bahena
== END 2019-04-21 02:21 | disposition home or self-care (01) ==
LOC: OBT 22:33 → L-D 22:37 → OBT 04-21 02:21
PROVIDERS: ATTEND Obstetrics & Gynecology
DX: O9A.212 Injury, poisoning and certain other consequences of external causes complicating pregnancy, second trimester (principal); Z3A.20 20 weeks gestation of pregnancy
CPT/HCPCS: 76815; 80053; 81001; 85025; 93005; Z7500; G0463